=== PATIENT | male | born 1995 ===

== ENCOUNTER 2021-09-10 20:04 | Emergency (ER) | payer SELFPAY | END 2021-09-10 23:05 | disposition left against medical advice (07) | LOC: ED 20:04 | DX: M25.474 Effusion, right foot (principal); Z53.21 Procedure and treatment not carried out due to patient leaving prior to being seen by health care provider ==

== ENCOUNTER 2021-12-20 13:39 | Emergency (ER) | payer SELFPAY ==
--- NOTE | 2021-12-20 15:41 | Emergency Department Report ---
ED General Adult HPI - General Stated complaint: INFECTED CUT Time Seen by Provider: 12/20/21 14:40 - History of Present Illness Initial comments: 26-year-old male with no significant past medical history reports to the ER with left middle finger pain with swelling. Patient reports he he previously suffered a cut to his left finger. It was not properly healed. Patient reports this happened maybe a week ago. Patient reports no other acute signs or symptoms at this time. - Related Data Previous Rx's Medication Instructions Recorded Last Taken Type Acetaminophen/Codeine [Tylenol 1 tab PO Q6H PRN 2 Days #8 tab 12/20/21 Unknown Rx /Codeine # 3 tab] Sulfamethoxazole/Trimethoprim 1 each PO BID 7 Days #14 tab 12/20/21 Unknown Rx [Bactrim DS TAB] Allergies Allergy/AdvReac Type Severity Reaction Status Date / Time No Known Allergies Allergy Verified 12/20/21 17:41 ED Review of Systems ROS: Stated complaint: INFECTED CUT Other details as noted in HPI Comment: All other systems reviewed and negative Musculoskeletal: joint swelling (Left middle finger), other (Left middle finger) ED Past Medical Hx - Past Medical History Previous Medical History?: No - Medications Home Medications: Home Medications Medication Instructions Recorded Confirmed Last Taken Type Acetaminophen/Codeine [Tylenol 1 tab PO Q6H PRN 2 Days #8 tab 12/20/21 Unknown Rx /Codeine # 3 tab] Sulfamethoxazole/Trimethoprim 1 each PO BID 7 Days #14 tab 12/20/21 Unknown Rx [Bactrim DS TAB] ED Physical Exam - General General appearance: alert, in no apparent distress - Head Head exam: Present: atraumatic, normocephalic - Eye Eye exam: Present: normal appearance - ENT ENT exam: Present: mucous membranes moist - Neck Neck exam: Present: normal inspection - Respiratory Respiratory exam: Present: normal lung sounds bilaterally. Absent: respiratory distress - Cardiovascular Cardiovascular Exam: Present: regular rate, normal rhythm. Absent: systolic murmur, diastolic murmur, rubs, gallop - GI/Abdominal GI/Abdominal exam: Present: soft, normal bowel sounds - Rectal Rectal exam: Present: deferred - Extremities Exam Extremities exam: Present: normal inspection - Expanded Upper Extremity Exam Left Hand Wrist exam: Present: other (Swelling noted to the left middle finger. With erythema. Tenderness noted. No abscess.) - Back Exam Back exam: Present: normal inspection - Neurological Exam Neurological exam: Present: alert, oriented X3 - Psychiatric Psychiatric exam: Present: normal affect, normal mood - Skin Skin exam: Present: warm, dry, intact, normal color. Absent: rash ED Course Vital Signs 12/20/21 17:39 Temperature 98.2 F Pulse Rate 74 Respiratory 14 Rate Blood Pressure 122/83 [Left] O2 Sat by Pulse 99 Oximetry ED Medical Decision Making - Radiology Data [facility] [address] [place] [address] XRay Report Signed Patient: KYLE CRAWFORD MR#: [id number] : 1995 Acct:[id number] Age/Sex: 26 / M ADM Date: 12/20/21 Loc: ED Attending Dr: Ordering Physician: SOLEDAD BLANCO NP Date of Service: 12/20/21 Procedure(s): XR hand 3+V LT Accession Number(s): [id number] cc: SOLEDAD BLANCO NP Fluoro Time In Minutes: LEFT HAND 3 VIEW(S) INDICATION / CLINICAL INFORMATION: left middle finger swelling COMPARISON: None available. FINDINGS: BONES / JOINT(S): No acute fracture or subluxation. No significant arthritis. SOFT TISSUES: There is focal soft tissue swelling at the left long finger primarily along the ulnar aspect. No soft tissue gas or foreign bodies. ADDITIONAL FINDINGS: None. IMPRESSION: 1. Left long finger soft tissue swelling without associated soft tissue gas, foreign body, or underlying skeletal abnormality. Signer Name: Jass Kim MD Signed: 12/20/2021 4:03 PM Workstation Name: [id number] Transcribed By: CRISELDA Dictated By: Jass Kim MD Electronically Authenticated By: Jass Kim MD Signed Date/Time: 12/20/211602 DD/ 160 - Medical Decision Making 26-year-old male reports to the ER with left middle finger swelling due to an old cut from about a week ago. On physical exam there is swelling and tenderness with erythema to the left middle finger. No paronychia noted no abscess noted. No visible drainage noted. old cut is noted to be on the palmar side of the left middle finger. X-ray is negative for any concerns of osteomyelitis to the left middle finger. Patient discharged home with oral medication and pain medication. Patient informed that if finger is to get worse while on antibiotics to please report back to the ER. Patient reports understanding and agrees with plan of care. Vital Signs 12/20/21 17:39 Temperature 98.2 F Pulse Rate 74 Respiratory 14 Rate Blood Pressure 122/83 [Left] O2 Sat by Pulse 99 Oximetry Critical care attestation.: If time is entered above; I have spent that time in minutes in the direct care of this critically ill patient, excluding procedure time. ED Disposition Clinical Impression: Swelling of left middle finger, Cellulitis of left middle finger Disposition: HOME / SELF CARE / HOMELESS Is pt being admited?: No Condition: Stable Instructions: Cellulitis, Adult Prescriptions: Sulfamethoxazole/Trimethoprim [Bactrim DS TAB] 1 each PO BID 7 Days #14 tab Acetaminophen/Codeine [Tylenol /Codeine # 3 tab] 1 tab PO Q6H PRN 2 Days #8 tab PRN Reason: Pain , Severe (7-10) Referrals: ALEJO CERVANTES MD [Primary Care Provider] - 3-5 Days
--- NOTE | 2021-12-20 16:07 | XRay Report ---
LEFT HAND 3 VIEW(S) INDICATION / CLINICAL INFORMATION: left middle finger swelling COMPARISON: None available. FINDINGS: BONES / JOINT(S): No acute fracture or subluxation. No significant arthritis. SOFT TISSUES: There is focal soft tissue swelling at the left long finger primarily along the ulnar a spect. No soft tissue gas or foreign bodies. ADDITIONAL FINDINGS: None. IMPRESSION: 1. Left long finger soft tissue swelling without associated soft tissue gas, foreign body, or underly ing skeletal abnormality. Signer Name: Jass Kim MD Signed: 12/20/2021 4:03 PM Workstation Name: [id number]
[2021-12-20] MEDS ORDERED: SULFAMETHOXAZOLE/TRIMETHOPRIM 800/160MG DS TAB PO SCH (17:30)
[2021-12-20] MEDS ORDERED: HYDROcodone/ACETAMINOPHEN 5-325 MG TAB PO SCH (17:30)
[2021-12-20 17:41] VITALS: BP 122/83
== END 2021-12-20 17:43 | disposition home or self-care (01) ==
LOC: ED 13:39
DX: L03.012 Cellulitis of left finger (principal); Z79.899 Other long term (current) drug therapy
CPT/HCPCS: 99283